=== PATIENT | female | born 1935 | race Hispanic/Latino ===

== ENCOUNTER 2018-09-12 02:20 | Observation (INO) | payer MEDICARE ==
[2018-09-12] MEDS ORDERED: NACL 0.9% 1000 ML IV ONE (02:50)
[2018-09-12 03:08] LABS: Mean Corpuscular HGB Conc 28 % (30-34); Mean Corpuscular Volume 90 fl (79-97); Platelet Count 356 K/mm3 (140-440); Red Blood Count 3.21 M/mm3 (3.65-5.03)
[2018-09-12 03:14] LABS: Hematocrit 28.7 % (30.3-42.9); Hemoglobin 7.9 gm/dl (10.1-14.3)
--- NOTE | 2018-09-12 03:20 | XRay Report ---
PROCEDURE: XR CHEST 1V AP TECHNIQUE: Chest radiograph single view. HISTORY: SOB COMPARISONS: None . FINDINGS: Heart: Mild to moderately enlarged.. Mediastinum/Vessels: The lungs appear congested.. Lungs/Pleural space: There is bilateral interstitial edema with bilateral effusions.. Bony thorax: No acute osseous abnormality. Life support devices: None. IMPRESSION: Cardiomegaly with congestive heart failure pattern and bilateral effusions.. This document is electronically signed by Alex Mcclelland MD., Sep 12 2018 03:18:17 AM ET
[2018-09-12 03:22] LABS: Alanine Aminotransferase 20 units/L (7-56); Albumin 2.5 g/dL (3.9-5)
[2018-09-12 03:23] LABS: Bilirubin,Urine NEG (Negative); Blood,Urine MOD (Negative); Color,Urine Yellow (Yellow)
[2018-09-12 03:25] LABS: WBC,Urine > 182.0 /HPF (0.0-6.0)
[2018-09-12] MEDS ORDERED: ZOSYN/NS 4.5GM/100ML 4.5 GM/100 ML VIAL IV ONE (03:30)
[2018-09-12 04:07] LABS: BUN/Creatinine Ratio 67; Blood Urea Nitrogen 47 mg/dL (7-17); Calcium 8.4 mg/dL (8.4-10.2); Hemolysis Index 26
[2018-09-12] MEDS ORDERED: LASIX IV ONE (04:13)
[2018-09-12] MEDS ORDERED: TYLENOL PO PRN (04:42)
[2018-09-12] MEDS ORDERED: MORPHINE IV PRN (04:42)
[2018-09-12] MEDS ORDERED: SODIUM CHLORIDE FLUSH SYRINGE 10 ML IV PRN (04:42)
[2018-09-12] MEDS ORDERED: ZOFRAN IV PRN (04:42)
[2018-09-12] MEDS ORDERED: KIONEX PR ONE (04:56)
--- NOTE | 2018-09-12 05:05 | Emergency Department Report ---
HPI - General Chief Complaint: Altered Mental Status Time Seen by Provider: 09/12/18 02:49 - HPI HPI: 82-year-old female presents to the emergency department via EMS from [facility] with a complaint of shortness of breath, bradycardia and some questionable altered mental status. She presents with a large packet of labs, reports and information from the patient's recent admission to [facility]. It sounds like the patient was discharged yesterday and had only been at [facility] for about 8-10 hours. The patient has a past medical history of atrial fibrillation, congestive heart failure, anemia, hypertension, macular degeneration. The patient is mostly nonverbal and is a poor historian. I was later able to speak with the patient's and grandson who say that the patient was being discharged to [facility] with the intention of placing her on hospice, but they have not yet been able to get all of the papers signed and hos pice initiated. ED Past Medical Hx - Past Medical History Previous Medical History?: Yes Hx Hypertension: Yes Hx Congestive Heart Failure: Yes (acute decompensated heart failure) Hx Arthritis: Yes Additional medical history: A-fib, anemia, hypocalcemia, mascular degeneration, peripheral edema, left pleural effusion, + depression screening, venous stasis dermatitis both lower extremities. - Surgical History Past Surgical History?: Yes Additional Surgical History: closed fracture of bone,knee joint, lumbar vertebra - Social History Smoking Status: Unknown if ever smoked - Medications Home Medications: Home Medications Medication Instructions Recorded Confirmed Last Taken Type Apixaban [Eliquis] 2.5 mg PO BID 09/12/18 09/12/18 Unknown History AtorvaSTATin [Lipitor] 40 mg PO QHS 09/12/18 09/12/18 Unknown History Ferrous Sulfate [Iron 325 MG] 325 mg PO QDAY 09/12/18 09/12/18 Unknown History Nystatin [Nystop Powder] 1 applicatio TP BID 09/12/18 09/12/18 Unknown History Polyethylene Glycol 3350 [Miralax 17 gm PO QDAY 09/12/18 09/12/18 Unknown History 3350] acetaZOLAMIDE ER [Diamox Sequels] 500 mg PO Q12H 09/12/18 09/12/18 Unknown History ED Review of Systems ROS: Stated complaint: AMS Other details as noted in HPI Comment: Unobtainable due to pts medical conditions Physical Exam - Physical Exam Vital Signs: Vital Signs 09/12/18 09/12/18 02:34 02:50 Temperature 97.9 F Pulse Rate 93 H Respiratory 15 35 H Rate Blood Pressure 122/62 Blood Pressure 122/62 [Left] O2 Sat by Pulse 98 97 Oximetry Physical Exam: GENERAL: Patient is ill-appearing. HENT: Normocephalic. Atraumatic. Patient has moist mucous membranes. EYES: Extraocular motions are intact. Pupils equal reactive to light bilaterally. NECK: Supple. Trachea is midline. CHEST/LUNGS: Coarse breath sounds at the chest. There is tachypnea and accessory muscle use. There is respiratory distress noted. HEART/CARDIOVASCULAR: Irregular rhythm. There is mild tachycardia. There is no murmur. ABDOMEN: Abdomen is soft, nontender. Patient has normal bowel sounds. There is no abdominal distention. SKIN: Skin is warm and dry. There are a few scattered decubitus ulcers. NEURO: The patient is awake but nonverbal. She does appear to be tracking with her eyes. Withdraw slightly from painful stimuli. MUSCULOSKELETAL: There is no obvious deformity. There is no evidence of acute injury. ED Course Vital Signs 09/12/18 09/12/18 02:34 02:50 Temperature 97.9 F Pulse Rate 93 H Respiratory 15 35 H Rate Blood Pressure 122/62 Blood Pressure 122/62 [Left] O2 Sat by Pulse 98 97 Oximetry - Consultations Consultation #1: 09/12/18 06:00 I contacted [facility] and spoke with the nurse salesperson women's hats. They say that they have not yet been able to get any signed forms from the family to initiate the hospitalist. Once they have all of the paperwork completed, they will be able to initiate the hospice upon discharge. - ABG Interpretation Ph: [phone] PCO2: 80 PO2: 58 Bicarbonate: 30 Interpretation: respiratory acidosis, other (hypoxemia) ED Medical Decision Making - Lab Data Result diagrams: 09/12/18 02:55 09/12/18 02:55 - EKG Data -: EKG Interpreted by Me - EKG Data When compared to previous EKG there are: previous EKG unavailable Interpretation: other (atrial fibrillation, rate of 95) - Radiology Data Radiology results: image reviewed interpreted by me: chest x-ray shows cardiomegaly, pulmonary vascular congestion and bilateral effusions. - Medical Decision Making This patient presents from [facility] with some respiratory distress. She has tachypnea, course breath sound, accessory muscle use and has some hypoxia without supplemental oxygen. However, in reviewing all of the records that came with the patient from her recent stay at [facility], I noticed that the patient and patient's family are attempting to get her set up for hospice and she was a DO NOT RESUSCITATE at [facility]. I spoke with the patient's h usband and grandson on the phone, and then once they arrived into the emergency department. They do plan to place her into hospice. I had a lengthy discussion with them regarding her CODE STATUS and the patient's decided to once again make her a DO NOT RESUSCITATE. The chest x-ray appears to show cardiomegaly, vascular congestion and pleural effusions. She has a BNP of greater than 30,000 without any renal insufficiency and altogether this appears consistent with CHF. Her ABG shows respiratory acidosis and hypoxemia. The patient was on BiPAP for a lengthy amount of time at [facility]. She is tracking with her eyes, and allegedly said some words to her and grandson. For this reason, we will attempt BiPAP to try and blow off some of the hypercapnia. She is also been given some Lasix to try and start diuresis. She was placed on IV antibiotics as part of the code sepsis workup and she does have a urinary tract infection. The patient was accepted for admission by the hospitalist service who will contact case management to try and get the order started for hospice. - Differential Diagnosis Pneumonia, CHF, PE, IL, Asthma Critical Care Time: Yes Critical care time in (mins) excluding proc time.: 35 Critical care attestation.: If time is entered above; I have spent that time in minutes in the direct care of this critically ill patient, excluding procedure time. Critical care time was spent on this patient and doing her initial evaluation, multiple re- evaluations, ordering an interpretation of labs and imaging, discussion with the patient's family and the hospitalist service. Critical Care Time: 35 minutes ED Disposition Clinical Impression: Respiratory distress, Respiratory acidosis CHF (congestive heart failure) Qualifiers: Heart failure type: unspecified Heart failure chronicity: unspecified Qualified Code(s): I50.9 - Heart failure, unspecified Sepsis Qualifiers: Sepsis type: sepsis due to unspecified organism Qualified Code(s): A41.9 - Sepsis, unspecified organism UTI (urinary tract infection) Qualifiers: Urinary tract infection type: acute cystitis Hematuria presence: with hematuria Qualified Code(s): N30.01 - Acute cystitis with hematuria Disposition: 09 OP ADMIT IP TO THIS HOSP Is pt being admited?: Yes Condition: Serious Time of Disposition: 06:06
--- NOTE | 2018-09-12 05:10 | History and Physical Report ---
<TOYA RICHARDSON - Last Filed: 09/12/18 05:36> History of Present Illness Date of examination: 09/12/18 Date of admission: 09/12/2018 Chief complaint: Respiratory failure History of present illness: Ms. Ferris is a 82-year-old female with history of CHF, A. fib rate controlled on Eliquis, chronic anemia, hypocalcemia, peripheral edema, left pleural effusion, BLE venous stasis dermatitis, macular degeneration who presents to [facility] via EMS with complaints of respiratory failure and altered mental status,. Patient is unable to assist in history. HPI is taken from medical records. Patient was recently discharged from [place] to [facility] with plans to transition to hospice. Shortly after arriving at [place] patient's mentation started to decline and her oxygen requirements increased. She had a weak response to sternal rub and was placed on Venturi mask at 15 L. Patient's has signed DO NOT RESUSCITATE paperwork and is requesting hospice at this time. Past History Past Medical History: atrial fib (anticoagulated on Eliquis), anemia, hypertension, other (hypo-calcemic, macular degeneration, ble venous stasis dermatitis, pleural effusion) Past Surgical History: Other (closed fracture of bone,knee joint, lumbar vertebra) Social history: Family history: no significant family history Medications and Allergies Allergies Allergy/AdvReac Type Severity Reaction Status Date / Time No Known Allergies Allergy Unverified 09/12/18 02:50 Home Medications Medication Instructions Recorded Confirmed Last Taken Type Apixaban [Eliquis] 2.5 mg PO BID 09/12/18 09/12/18 Unknown History AtorvaSTATin [Lipitor] 40 mg PO QHS 09/12/18 09/12/18 Unknown History Ferrous Sulfate [Iron 325 MG] 325 mg PO QDAY 09/12/18 09/12/18 Unknown History Nystatin [Nystop Powder] 1 applicatio TP BID 09/12/18 09/12/18 Unknown History Polyethylene Glycol 3350 [Miralax 17 gm PO QDAY 09/12/18 09/12/18 Unknown History 3350] acetaZOLAMIDE ER [Diamox Sequels] 500 mg PO Q12H 09/12/18 09/12/18 Unknown H istory Active Meds: Active Medications Acetaminophen (Tylenol) 650 mg PO Q4H PRN PRN Reason: Pain MILD(1-3)/Fever >100.5/SWANN Apixaban (Eliquis) 2.5 mg PO BID MARZENA; Protocol Atorvastatin Calcium (Lipitor) 40 mg PO QHS MARZENA Furosemide (Lasix) 40 mg IV 0600,1800 [facility] Miscellaneous Medication (Acetazolamide Er) 500 mg PO Q12H MARZENA Morphine Sulfate (Morphine) 2 mg IV Q4H PRN PRN Reason: Pain, Moderate (4-6) Ondansetron HCl (Zofran) 4 mg IV Q8H PRN PRN Reason: Nausea And Vomiting Sodium Chloride (Sodium Chloride Flush Syringe 10 Ml) 10 ml IV BID MARZENA Sodium Chloride (Sodium Chloride Flush Syringe 10 Ml) 10 ml IV PRN PRN PRN Reason: LINE FLUSH Sodium Polystyrene Sulfonate (Kionex) 30 gm AL ONCE ONE Stop: 09/12/18 04:57 Review of Systems ROS unobtainable: due to mental status Exam - Physical Exam Narrative exam: Physical exam General appearance: Present: Acute distress, ill appearing, lethargic - EENT Eyes: Present: PERRL, EOM intact ENT: hearing intact, poor dentition - Neck Neck: Present: supple, normal ROM - Respiratory Respiratory effort: Labored Respiratory: Scattered crackles to bases, on BiPAP - Cardiovascular Heart rate: 95 (bpm) Rhythm: Atrial fibrillation, Irregular regular Heart Sounds: Present: S1 & S2. Absent: rub, click - Extremities Extremities: no ischemia, pulses intact, abnormal (generalized 3+ pitting edema) - Peripheral Assessment Peripheral Pulses: Symmetrical - Abdominal General gastrointestinal: soft, non-tender, normal bowel sounds - Integumentary Integumentary: Present: Skin tears to right lower extremity, unstageable sacral ulcer, left inguinal ulcer, warm, dry - Musculoskeletal Musculoskeletal: generalized weakness - Psychiatric Psychiatric: obeys commands - Constitutional Vitals: Temp Pulse Resp BP Pulse Ox 97.9 F 93 H 35 H 122/62 97 09/12/18 02:34 09/12/18 02:34 09/12/18 02:50 09/12/18 02:34 09/12/18 02:50 Results - Labs CBC & Chem 7: 09/12/18 02:55 09/12/18 02:55 Labs: Laboratory Last Values WBC 16.8 K/mm3 (4.5-11.0) H 09/12/18 02:55 RBC 3.21 M/mm3 (3.65-5.03) L 09/12/18 02:55 Hgb 7.9 gm/dl (10.1-14.3) L 09/12/18 02:55 Hct 28.7 % (30.3-42.9) L 09/12/18 02:55 MCV 90 fl (79-97) 09/12/18 02:55 MCH 25 pg (28-32) L 09/12/18 02:55 MCHC 28 % (30-34) L 09/12/18 02:55 RDW 20.0 % (13.2-15.2) H 09/12/18 02:55 Plt Count 356 K/mm3 (140-440) 09/12/18 02:55 Seg Neutrophils % Signals Intelligence Analyst 09/12/18 02:55 WBC Morphology TNR 09/12/18 02:55 POC ABG pH 7.169 (7.35-7.45) L 09/12/18 03:56 POC ABG pO2 58 (80-105) L 09/12/18 03:56 POC ABG HCO3 30.6 (22-26 mml/L) 09/12/18 03:56 POC ABG Total CO2 33 (23-27mmol/L) 09/12/18 03:56 POC ABG O2 Sat 80 09/12/18 03:56 POC ABG Base Excess 2 ((-2) - (+3)mmol/L) 09/12/18 03:56 50 % 09/12/18 03:56 Sodium 142 mmol/L (137-145) 09/12/18 02:55 Potassium 5.3 mmol/L (3.6-5.0) H 09/12/18 02:55 Chloride 101.4 mmol/L (98-107) 09/12/18 02:55 Carbon Dioxide 31 mmol/L (22-30) H 09/12/18 02:55 15 mmol/L 09/12/18 02:55 BUN 47 mg/dL (7-17) H 09/12/18 02:55 0.7 mg/dL (0.7-1.2) 09/12/18 02:55 Estimated GFR > 60 ml/min 09/12/18 02:55 67 % 09/12/18 02:55 Glucose 86 mg/dL (65-100) 09/12/18 02:55 Lactic Acid 0.80 mmol/L (0.7-2.0) 09/12/18 02:55 Calcium 8.4 mg/dL (8.4-10.2) 09/12/18 02:55 0.80 mg/dL (0.1-1.2) 09/12/18 02:55 AST 21 units/L (5-40) 09/12/18 02:55 ALT 20 units/L (7-56) 09/12/18 02:55 117 units/L (35-129) 09/12/18 02:55 65.0 umol/L (25-60) H 09/12/18 03:08 < 0.010 ng/mL (0.00-0.029) 09/12/18 02:55 NT-Pro-B Natriuret Pep 35101 pg/mL (0-900) H 09/12/18 02:30 5.5 g/dL (6.3-8.2) L 09/12/18 02:55 2.5 g/dL (3.9-5) L 09/12/18 02:55 0.8 % 09/12/18 02:55 TSH 1.010 mlU/mL (0.270-4.200) 09/12/18 02:55 Yellow (Yellow) 09/12/18 02:55 Turbid (Clear) 09/12/18 02:55 5.0 (5.0-7.0) 09/12/18 02:55 Ur Specific [place] 1.014 (1.003-1.030) 09/12/18 02:55 30 mg/dl mg/dL (Negative) 09/12/18 02:55 Neg mg/dL (Negative) 09/12/18 02:55 Neg mg/dL (Negative) 09/12/18 02:55 Mod (Negative) 09/12/18 02:55 Neg (Negative) 09/12/18 02:55 Neg (Negative) 09/12/18 02:55 Not Reportable 09/12/18 02:55 4.0 mg/dL (<2.0) 09/12/18 02:55 Ur Leukocyte Esterase Mod (Negative) 09/12/18 02:55 > 182.0 /HPF (0.0-6.0) H 09/12/18 02:55 78.0 /HPF (0.0-6.0) 09/12/18 02:55 U Epithel Cells (Auto) 6.0 /HPF (0-13.0) 09/12/18 02:55 3+ /HPF 09/12/18 02:55 - Imaging and Cardiology EKG: image reviewed (atrial fibrillation 95 bpm) Chest x-ray: report reviewed (bilateral interstitial edema with bilateral effusions), image reviewed Assessment and Plan Assessment and plan: Ms. Ferris is a 82-year-old female with history of CHF, A. fib rate controlled on Eliquis, chronic anemia, hypocalcemia, peripheral edema, left pleural effusion, BLE venous stasis dermatitis, macular degeneration who presents to [facility] via EMS with complaints of respiratory failure and altered mental status. Patient arrived on Ventimask 15 L/m. Initial ABG 7.169/84.2/58/30.6 she was then placed on BiPAP. Leukocytosis with WBC 16.8. She is hyperkalemic with potassium of 5.3. The BUN elevated at 47. Family has signed DO NOT RESUSCITATE paperwork. Patient will be admitted as OBS to the telemetry unit and pending inpatient hospice placement. Consult has been placed with case management and hospice order has been placed. Acute hypoxic/ hypercapnic respiratory failure Acute exacerbation CHF Anasarca Hyperkalemia Hypertension Chronic anemia Plan: Continue supportive care care Continue non-invasive ventilation support IV Lasix Hospice consult pending Case management consult pending Cultures pending Since patient was discharged one day ago from [place] and is afebrile, emmett Hold off on IV antibiotics for now Continue Eliquis Monitor electrolytes Kayexalate 30mg Monitor H/H; transfuse when necessary DVT PPX on Eliquis and SCD's Advance Directives: No VTE prophylaxis?: Mechanical Plan of care discussed with patient/family: Yes <DANNIE GOODWIN - Last Filed: 09/13/18 07:10> History of Present Illness Date of admission: 09/12/18 05:51 Exam - Constitutional Vitals: Temp Pulse Resp BP Pulse Ox 97.5 F L 76 22 86/38 93 09/12/18 19:56 09/12/18 19:56 09/12/18 19:56 09/12/18 19:56 09/12/18 19:56 Results - Labs CBC & Chem 7: 09/12/18 02:55 09/12/18 02:55 Labs: Laboratory Last Values WBC 16.8 K/mm3 (4.5-11.0) H 09/12/18 02:55 RBC 3.21 M/mm3 (3.65-5.03) L 09/12/18 02:55 Hgb 7.9 gm/dl (10.1-14.3) L 09/12/18 02:55 Hct 28.7 % (30.3-42.9) L 09/12/18 02:55 MCV 90 fl (79-97) 09/12/18 02:55 MCH 25 pg (28-32) L 09/12/18 02:55 MCHC 28 % (30-34) L 09/12/18 02:55 RDW 20.0 % (13.2-15.2) H 09/12/18 02:55 Plt Count 356 K/mm3 (140-440) 09/12/18 02:55 Add Manual Diff Complete 09/12/18 02:55 Total Counted 100 09/12/18 02:55 Seg Neutrophils % Signals Intelligence Analyst 09/12/18 02:55 Seg Neuts % (Manual) 78.0 % (40.0-70.0) H 09/12/18 02:55 22.0 % 09/12/18 02:55 0 % (13.4-35.0) L 09/12/18 02:55 Reactive Lymphs % (Man) 0 % 09/12/18 02:55 0 % (0.0-7.3) 09/12/18 02:55 0 % (0.0-4.3) 09/12/18 02:55 0 % (0.0-1.8) 09/12/18 02:55 0 % 09/12/18 02:55 0 % 09/12/18 02:55 0 % 09/12/18 02:55 0 % 09/12/18 02:55 Nucleated RBC % Not Reportable 09/12/18 02:55 Seg Neutrophils # Man 13.1 K/mm3 (1.8-7.7) H 09/12/18 02:55 Band Neutrophils # 3.7 K/mm3 09/12/18 02:55 0.0 K/mm3 (1.2-5.4) L 09/12/18 02:55 Abs React Lymphs (Man) 0.0 K/mm3 09/12/18 02:55 0.0 K/mm3 (0.0-0.8) 09/12/18 02:55 0.0 K/mm3 (0.0-0.4) 09/12/18 02:55 0.0 K/mm3 (0.0-0.1) 09/12/18 02:55 0.0 K/mm3 09/12/18 02:55 0.0 K/mm3 09/12/18 02:55 0.0 K/mm3 09/12/18 02:55 Blast Cells # 0.0 K/mm3 09/12/18 02:55 WBC Morphology Not Reportable 09/12/18 02:55 WBC Morphology TNR 09/12/18 02:55 Hypersegmented Neuts Not Reportable 09/12/18 02:55 Hyposegmented Neuts Not Reportable 09/12/18 02:55 Hypogranular Neuts Not Reportable 09/12/18 02:55 Not Reportable 09/12/18 02:55 Not Reportable 09/12/18 02:55 Not Reportable 09/12/18 02:55 Not Reportable 09/12/18 02:55 Not Reportable 09/12/18 02:55 Not Reportable 09/12/18 02:55 Consistent w auto 09/12/18 02:55 Not Reportable 09/12/18 02:55 Plt Clumps, EDTA Not Reportable 09/12/18 02:55 Not Reportable 09/12/18 02:55 Not Reportable 09/12/18 02:55 Not Reportable 09/12/18 02:55 Plt Morphology Comment Not Reportable 09/12/18 02:55 RBC Morphology Not Reportable 09/12/18 02:55 Dimorphic RBCs Not Reportable 09/12/18 02:55 Not Reportable 09/12/18 02:55 Not Reportable 09/12/18 02:55 1+ 09/12/18 02:55 1+ 09/12/18 02:55 Not Reportable 09/12/18 02:55 Not Reportable 09/12/18 02:55 Not Reportable 09/12/18 02:55 Not Reportable 09/12/18 02:55 Not Reportable 09/12/18 02:55 Not Reportable 09/12/18 02:55 Not Reportable 09/12/18 02:55 Not Reportable 09/12/18 02:55 Not Reportable 09/12/18 02:55 Not Reportable 09/12/18 02:55 Not Reportable 09/12/18 02:55 Not Reportable 09/12/18 02:55 Not Reportable 09/12/18 02:55 Not Reportable 09/12/18 02:55 1+ 09/12/18 02:55 Acanthocytes (Spur) Few 09/12/18 02:55 Rouleaux Not Reportable 09/12/18 02:55 Not Reportable 09/12/18 02:55 Not Reportable 09/12/18 02:55 Not Reportable 09/12/18 02:55 Not Reportable 09/12/18 02:55 Hem Pathologist Commnt No 09/12/18 02:55 PT 19.6 Sec. (12.2-14.9) H 09/12/18 09:33 INR 1.55 (0.87-1.13) H 09/12/18 09:33 APTT 33.2 Sec. (24.2-36.6) 09/12/18 09:33 POC ABG pH 7.111 (7.35-7.45) L 09/12/18 11:50 POC ABG pO2 134 (80-105) H 09/12/18 11:50 POC ABG HCO3 30.6 (22-26 mml/L) 09/12/18 11:50 POC ABG Total CO2 33 (23-27mmol/L) 09/12/18 11:50 POC ABG O2 Sat 97 09/12/18 11:50 POC ABG Base Excess 1 ((-2) - (+3)mmol/L) 09/12/18 11:50 60 % 09/12/18 11:50 Sodium 142 mmol/L (137-145) 09/12/18 02:55 Potassium 5.3 mmol/L (3.6-5.0) H 09/12/18 02:55 Chloride 101.4 mmol/L (98-107) 09/12/18 02:55 Carbon Dioxide 31 mmol/L (22-30) H 09/12/18 02:55 15 mmol/L 09/12/18 02:55 BUN 47 mg/dL (7-17) H 09/12/18 02:55 0.7 mg/dL (0.7-1.2) 09/12/18 02:55 Estimated GFR > 60 ml/min 09/12/18 02:55 67 % 09/12/18 02:55 Glucose 86 mg/dL (65-100) 09/12/18 02:55 POC Glucose 97 (70-105) 09/12/18 08:56 Lactic Acid 1.00 mmol/L (0.7-2.0) 09/12/18 08:58 Calcium 8.4 mg/dL (8.4-10.2) 09/12/18 02:55 0.80 mg/dL (0.1-1.2) 09/12/18 02:55 AST 21 units/L (5-40) 09/12/18 02:55 ALT 20 units/L (7-56) 09/12/18 02:55 117 units/L (35-129) 09/12/18 02:55 65.0 umol/L (25-60) H 09/12/18 03:08 < 0.010 ng/mL (0.00-0.029) 09/12/18 02:55 NT-Pro-B Natriuret Pep 20391 pg/mL (0-900) H 09/12/18 02:30 5.5 g/dL (6.3-8.2) L 09/12/18 02:55 2.5 g/dL (3.9-5) L 09/12/18 02:55 0.8 % 09/12/18 02:55 TSH 1.010 mlU/mL (0.270-4.200) 09/12/18 02:55 Yellow (Yellow) 09/12/18 02:55 Turbid (Clear) 09/12/18 02:55 5.0 (5.0-7.0) 09/12/18 02:55 Ur Specific [place] 1.014 (1.003-1.030) 09/12/18 02:55 30 mg/dl mg/dL (Negative) 09/12/18 02:55 Neg mg/dL (Negative) 09/12/18 02:55 Neg mg/dL (Negative) 09/12/18 02:55 Mod (Negative) 09/12/18 02:55 Neg (Negative) 09/12/18 02:55 Neg (Negative) 09/12/18 02:55 Not Reportable 09/12/18 02:55 4.0 mg/dL (<2.0) 09/12/18 02:55 Ur Leukocyte Esterase Mod (Negative) 09/12/18 02:55 > 182.0 /HPF (0.0-6.0) H 09/12/18 02:55 78.0 /HPF (0.0-6.0) 09/12/18 02:55 U Epithel Cells (Auto) 6.0 /HPF (0-13.0) 09/12/18 02:55 3+ /HPF 09/12/18 02:55 Assessment and Plan Assessment and plan: I personally discussed the patient with the SPINNING SUPERVISOR-C. I agree with the above assessment and plan
[2018-09-12 05:38] LABS: Band Neutrophils # (Manual) 3.7 K/mm3; Basophils % (Manual) 0 % (0.0-1.8); Eosinophils % (Manual) 0 % (0.0-4.3); Monocytes % (Manual) 0 % (0.0-7.3); Total Cells Counted 100
[2018-09-12 05:39] LABS: Anisocytosis 1+; Poikilocytosis 1+
[2018-09-12 05:40] LABS: Platelet Estimate Consistent w Auto
[2018-09-12] MEDS: LASIX IV SCH ×2 (06:20→19:00)
[2018-09-12] MEDS: DIAMOX PO SCH ×2 (06:20→18:51)
[2018-09-12] MEDS: ELIQUIS PO SCH ×2 (09:13→21:20)
[2018-09-12] MEDS: SODIUM CHLORIDE FLUSH SYRINGE 10 ML IV SCH ×2 (09:13→22:04)
[2018-09-12 11:06] LABS: INR 1.55 (0.87-1.13); Partial Thromboplastin Time 33.2 Sec. (24.2-36.6)
--- NOTE | 2018-09-12 12:22 | Progress Note ---
Assessment and Plan Assessment and plan: Patient is a 82-year-old woman with a history of CHF, COPD, quit tobacco 12 years ago, A. fib rate controlled on Eliquis, chronic anemia, hypocalcemia, peripheral edema, left pleural effusion, BLE venous stasis dermatitis, macular degeneration who presents to [facility] via EMS with complaints of respiratory failure and altered mental status,. Patient is unable to assist in history. HPI is taken from medical records. Patient was recently discharged from [place] to [facility] with plans to transition to hospice. Shortly after arriving at [place] patient's mentation started to decline and her oxygen requirements increased. She had a weak response to sternal rub. Patient arrived on Ventimask 15 L/m. Initial ABG 7.169/84.2/58/30.6 she was then placed on BiPAP. Leukocytosis with WBC 16.8. She is hyperkalemic with potassium of 5.3. The BUN elevated at 47. Consult has been placed with case management and hospice order has been placed. Patient's has signed DO NOT RESUSCITATE paperwork and is requesting hospice at this time. Acute hypoxic/ hypercapnic respiratory failure Acute exacerbation CHF Anasarca Hyperkalemia Hypertension AOCD [phone], I spoke with . Update given, he is ok with Hospice Disposition: inpatient hospice poor prognosis, bipap didnt work will remove, anticipate CCt 35 minutes History Interval history: Patient was seen and examined. Follow-up on current diagnosis of respiratory f ailure. Patient is unresponsive on BIPAP, semi comatose. I called a CODE MET. Patient is AND/DNR, so bipap continued for comfort measures and to try and get pCO2 down. Hospitalist Physical - Physical exam Narrative exam: Gen: critically ill, near , thin frail, chronically disable appearing. HEENT: pupils reactive, op dry Neck: supple, no JVD CVS/Heart: RRR, normal S1S2, pulses present bilaterally Chest/Lungs: tachypneic, severely diminished bilaterally, Symmetrical chest expansion, reduced air entry bilaterally GI/Abdomen: soft, + bowel sounds, no guarding or rebound Extermity/Skin: no c/c/e, no obvious rash MSK: no moving Neuro: nonresponsive Psych: semi-comatose - Constitutional Vitals: Temp Pulse Resp BP Pulse Ox 97.9 F 90 34 H 107/96 93 09/12/18 02:34 09/12/18 09:02 09/12/18 06:21 09/12/18 06:21 09/12/18 06:21 Results - Labs CBC & Chem 7: 09/12/18 02:55 09/12/18 02:55 Labs: Laboratory Last Values WBC 16.8 K/mm3 (4.5-11.0) H 09/12/18 02:55 RBC 3.21 M/mm3 (3.65-5.03) L 09/12/18 02:55 Hgb 7.9 gm/dl (10.1-14.3) L 09/12/18 02:55 Hct 28.7 % (30.3-42.9) L 09/12/18 02:55 MCV 90 fl (79-97) 09/12/18 02:55 MCH 25 pg (28-32) L 09/12/18 02:55 MCHC 28 % (30-34) L 09/12/18 02:55 RDW 20.0 % (13.2-15.2) H 09/12/18 02:55 Plt Count 356 K/mm3 (140-440) 09/12/18 02:55 Add Manual Diff Complete 09/12/18 02:55 Total Counted 100 09/12/18 02:55 Seg Neutrophils % Nursing Student 09/12/18 02:55 Seg Neuts % (Manual) 78.0 % (40.0-70.0) H 09/12/18 02:55 22.0 % 09/12/18 02:55 0 % (13.4-35.0) L 09/12/18 02:55 Reactive Lymphs % (Man) 0 % 09/12/18 02:55 0 % (0.0-7.3) 09/12/18 02:55 0 % (0.0-4.3) 09/12/18 02:55 0 % (0.0-1.8) 09/12/18 02:55 0 % 09/12/18 02:55 0 % 09/12/18 02:55 0 % 09/12/18 02:55 0 % 09/12/18 02:55 Nucleated RBC % Not Reportable 09/12/18 02:55 Seg Neutrophils # Man 13.1 K/mm3 (1.8-7.7) H 09/12/18 02:55 Band Neutrophils # 3.7 K/mm3 09/12/18 02:55 0.0 K/mm3 (1.2-5.4) L 09/12/18 02:55 Abs React Lymphs (Man) 0.0 K/mm3 09/12/18 02:55 0.0 K/mm3 (0.0-0.8) 09/12/18 02:55 0.0 K/mm3 (0.0-0.4) 09/12/18 02:55 0.0 K/mm3 (0.0-0.1) 09/12/18 02:55 0.0 K/mm3 09/12/18 02:55 0.0 K/mm3 09/12/18 02:55 0.0 K/mm3 09/12/18 02:55 Blast Cells # 0.0 K/mm3 09/12/18 02:55 WBC Morphology Not Reportable 09/12/18 02:55 WBC Morphology TNR 09/12/18 02:55 Hypersegmented Neuts Not Reportable 09/12/18 02:55 Hyposegmented Neuts Not Reportable 09/12/18 02:55 Hypogranular Neuts Not Reportable 09/12/18 02:55 Not Reportable 09/12/18 02:55 Not Reportable 09/12/18 02:55 Not Reportable 09/12/18 02:55 Not Reportable 09/12/18 02:55 Not Reportable 09/12/18 02:55 Not Reportable 09/12/18 02:55 Consistent w auto 09/12/18 02:55 Not Reportable 09/12/18 02:55 Plt Clumps, EDTA Not Reportable 09/12/18 02:55 Not Reportable 09/12/18 02:55 Not Reportable 09/12/18 02:55 Not Reportable 09/12/18 02:55 Plt Morphology Comment Not Reportable 09/12/18 02:55 RBC Morphology Not Reportable 09/12/18 02:55 Dimorphic RBCs Not Reportable 09/12/18 02:55 Not Reportable 09/12/18 02:55 Not Reportable 09/12/18 02:55 1+ 09/12/18 02:55 1+ 09/12/18 02:55 Not Reportable 09/12/18 02:55 Not Reportable 09/12/18 02:55 Not Reportable 09/12/18 02:55 Not Reportable 09/12/18 02:55 Not Reportable 09/12/18 02:55 Not Reportable 09/12/18 02:55 Not Reportable 09/12/18 02:55 Not Reportable 09/12/18 02:55 Not Reportable 09/12/18 02:55 Not Reportable 09/12/18 02:55 Not Reportable 09/12/18 02:55 Not Reportable 09/12/18 02:55 Not Reportable 09/12/18 02:55 Not Reportable 09/12/18 02:55 1+ 09/12/18 02:55 Acanthocytes (Spur) Few 09/12/18 02:55 Rouleaux Not Reportable 09/12/18 02:55 Not Reportable 09/12/18 02:55 Not Reportable 09/12/18 02:55 Not Reportable 09/12/18 02:55 Not Reportable 09/12/18 02:55 Hem Pathologist Commnt No 09/12/18 02:55 PT 19.6 Sec. (12.2-14.9) H 09/12/18 09:33 INR 1.55 (0.87-1.13) H 09/12/18 09:33 APTT 33.2 Sec. (24.2-36.6) 09/12/18 09:33 POC ABG pH 7.169 (7.35-7.45) L 09/12/18 03:56 POC ABG pO2 58 (80-105) L 09/12/18 03:56 POC ABG HCO3 30.6 (22-26 mml/L) 09/12/18 03:56 POC ABG Total CO2 33 (23-27mmol/L) 09/12/18 03:56 POC ABG O2 Sat 80 09/12/18 03:56 POC ABG Base Excess 2 ((-2) - (+3)mmol/L) 09/12/18 03:56 50 % 09/12/18 03:56 Sodium 142 mmol/L (137-145) 09/12/18 02:55 Potassium 5.3 mmol/L (3.6-5.0) H 09/12/18 02:55 Chloride 101.4 mmol/L (98-107) 09/12/18 02:55 Carbon Dioxide 31 mmol/L (22-30) H 09/12/18 02:55 15 mmol/L 09/12/18 02:55 BUN 47 mg/dL (7-17) H 09/12/18 02:55 0.7 mg/dL (0.7-1.2) 09/12/18 02:55 Estimated GFR > 60 ml/min 09/12/18 02:55 67 % 09/12/18 02:55 Glucose 86 mg/dL (65-100) 09/12/18 02:55 POC Glucose 97 (70-105) 09/12/18 08:56 Lactic Acid 1.00 mmol/L (0.7-2.0) 09/12/18 08:58 Calcium 8.4 mg/dL (8.4-10.2) 09/12/18 02:55 0.80 mg/dL (0.1-1.2) 09/12/18 02:55 AST 21 units/L (5-40) 09/12/18 02:55 ALT 20 units/L (7-56) 09/12/18 02:55 117 units/L (35-129) 09/12/18 02:55 65.0 umol/L (25-60) H 09/12/18 03:08 < 0.010 ng/mL (0.00-0.029) 09/12/18 02:55 NT-Pro-B Natriuret Pep 10332 pg/mL (0-900) H 09/12/18 02:30 5.5 g/dL (6.3-8.2) L 09/12/18 02:55 2.5 g/dL (3.9-5) L 09/12/18 02:55 0.8 % 09/12/18 02:55 TSH 1.010 mlU/mL (0.270-4.200) 09/12/18 02:55 Yellow (Yellow) 09/12/18 02:55 Turbid (Clear) 09/12/18 02:55 5.0 (5.0-7.0) 09/12/18 02:55 Ur Specific Kiel 1.014 (1.003-1.030) 09/12/18 02:55 30 mg/dl mg/dL (Negative) 09/12/18 02:55 Neg mg/dL (Negative) 09/12/18 02:55 Neg mg/dL (Negative) 09/12/18 02:55 Mod (Negative) 09/12/18 02:55 Neg (Negative) 09/12/18 02:55 Neg (Negative) 09/12/18 02:55 Not Reportable 09/12/18 02:55 4.0 mg/dL (<2.0) 09/12/18 02:55 Ur Leukocyte Esterase Mod (Negative) 09/12/18 02:55 > 182.0 /HPF (0.0-6.0) H 09/12/18 02:55 78.0 /HPF (0.0-6.0) 09/12/18 02:55 U Epithel Cells (Auto) 6.0 /HPF (0-13.0) 09/12/18 02:55 3+ /HPF 09/12/18 02:55 Active Medications - Current Medications Current Medications: Generic Name Dose Route Start Last Admin Trade Name Freq PRN Reason Stop Dose Admin Acetaminophen 650 mg 09/12/18 04:42 Tylenol PO Q4H PRN Pain MILD(1-3)/Fever >100.5/SWANN Acetazolamide 500 mg 09/12/18 06:00 09/12/18 06:20 Diamox PO Not Given Q12H [facility] Apixaban 2.5 mg 09/12/18 10:00 09/12/18 09:13 Eliquis PO Not Given BID [facility] Protocol Atorvastatin Calcium 40 mg 09/12/18 22:00 Lipitor PO QHS [facility] Furosemide 40 mg 09/12/18 06:00 09/12/18 06:20 Lasix IV Not Given 0600,1800 MARZENA Morphine Sulfate 2 mg 09/12/18 04:42 Morphine IV Q4H PRN Pain, Moderate (4-6) Ondansetron HCl 4 mg 09/12/18 04:42 Zofran IV Q8H PRN Nausea And Vomiting Sodium Chloride 10 ml 09/12/18 10:00 09/12/18 09:13 Sodium Chloride Flush Syringe 10 Ml IV Not Given BID [facility] Sodium Chloride 10 ml 09/12/18 04:42 Sodium Chloride Flush Syringe 10 Ml IV PRN PRN LINE FLUSH
--- NOTE | 2018-09-12 12:33 | Discharge Summary ---
Providers - Providers Date of Admission: 09/12/18 08:58 Attending physician: RAJI SONG 09/12/18 Consult to Case Management [CONS] Routine Services Needed at Discharge: Other Notified:: case management Additional Physician Instructions: Inpatient Hospice Hospitalization Condition: Poor Hospital course: Patient is a 82-year-old woman with a history of CHF, COPD, quit tobacco 12 years ago, A. fib rate controlled on Eliquis, chronic anemia, hypocalcemia, peripheral edema, left pleural effusion, BLE venous stasis dermatitis, macular degeneration who presents to [facility] via EMS with complaints of respiratory failure and altered mental status,. Patient is unable to assist in history. HPI is taken from medical records. Patient was recently discharged from [place] to [facility] ([facility]) with plans to transition to hospice. Shortly after arriving at [place] patient's mentation started to decline and her oxygen requirements increased. She had a weak response to sternal rub. Patient arrived on Ventimask 15 L/m. Initial ABG 7.169/84.2/58/30.6 she was then placed on BiPAP. Leukocytosis with WBC 16.8. She is hyperkalemic with potassium of 5.3. The BUN elevated at 47. Consult has been placed with case management and hospice order has been placed. Patient's has signed DO NOT RESUSCITATE paperwork and is requesting hospice at this time. Discharge Diagnoses: Acute hypoxic/ hypercapnic respiratory failure Acute exacerbation CHF Acute COPD exaceration Anasarca Hyperkalemia Hypertension AOCD Disposition: [facility] ([facility]) Time spent for discharge: 31 minutes Core Measure Documentation - Palliative Care Palliative Care/ Comfort Measures: Hospice Care Exam - Physical Exam Narrative exam: Gen: critically ill, near , thin frail, chronically disable appearing. HEENT: pupils reactive, op dry Neck: supple, no JVD CVS/Heart: RRR, normal S1S2, pulses present bilaterally Chest/Lungs: tachypneic, severely diminished bilaterally, Symmetrical chest expansion, reduced air entry bilaterally GI/Abdomen: soft, + bowel sounds, no guarding or rebound Extermity/Skin: no c/c/e, no obvious rash MSK: no moving Neuro: nonresponsive Psych: semi-comatose - Constitutional Vitals: Temp Pulse Resp BP Pulse Ox 97.9 F 69 23 92/50 91 09/12/18 02:34 09/12/18 12:16 09/12/18 09:02 09/12/18 12:16 09/12/18 12:16 Plan Additional Instructions: Hospice Care Follow up with: ELDER ALMARAZ MD [facility] [Other] - 3-5 Days
[2018-09-12 19:57] VITALS: BP 86/38
--- NOTE | 2018-09-13 07:29 | Death Summary ---
Summary - Providers Consults: 09/12/18 Consult to Case Management [CONS] Routine Services Needed at Discharge: Other Notified:: case management Additional Physician Instructions: Inpatient Hospice Attending: RAJI SONG - summary Date of admission: 09/12/18 05:51 Date of : 09/12/18 Significant findings: Patient is a 82-year-old woman with a history of CHF, COPD, quit tobacco 12 years ago, A. fib rate controlled on Eliquis, chronic anemia, hypocalcemia, peripheral edema, left pleural effusion, BLE venous stasis dermatitis, macular degeneration who presented to [facility] via EMS with respiratory failure and altered mental status,. Patient is unable to assist in history. HPI is taken from medical records. Patient was recently discharged from [place] to [facility] with plans to transition to hospice. Shortly after arriving at [place], patient's mentation started to decline and her oxygen requirements increased. She had a weak response to sternal rub. Patient arrived on Ventimask 15 L/m. Initial ABG 7.169/84.2/58/30.6 she was then placed on BiPAP. Leukocytosis with WBC 16.8. She is hyperkalemic with potassium of 5.3. The BUN elevated at 47. pCXR c/w CHF. Consult has been placed with case management and hospice order has been placed. Patient's has signed DO NOT RESUSCITATE paperwork and is requesting hospice at this time. Acute hypoxic/ hypercapnic respiratory failure Acute exacerbation CHF, suspected acute on chronic combined heart failure Acute COPD exaceration Acute Encephalopathy, poa Severe Malnutrition, poa Anasarca Hyperkalemia Hypertension AOCD Time of 9:45pm per LASHAY Wheeler suspected Cause of : CHF
--- NOTE | 2018-09-13 08:44 | Event Note ---
Date: 09/12/18 Patient pronounced at 945 pm Cardiorespiratory arrest
== END 2018-09-12 22:00 ==
LOC: ED 02:20 → 4A 05:51 → INTOOBSV 08:58 → OBSVTOIN 08:58
PROVIDERS: ADMIT Internal Medicine; ATTEND Internal Medicine
DX: J96.01 Acute respiratory failure with hypoxia (principal); J96.02 Acute respiratory failure with hypercapnia; N39.0 Urinary tract infection, site not specified; I11.0 Hypertensive heart disease with heart failure; I50.9 Heart failure, unspecified; R60.1 Generalized edema; E87.5 Hyperkalemia; D64.9 Anemia, unspecified; E83.51 Hypocalcemia; J44.1 Chronic obstructive pulmonary disease with (acute) exacerbation; G93.40 Encephalopathy, unspecified; E43 Unspecified severe protein-calorie malnutrition; R41.82 Altered mental status, unspecified; I48.91 Unspecified atrial fibrillation; Z79.899 Other long term (current) drug therapy; Z87.891 Personal history of nicotine dependence
CPT/HCPCS: 36415; 36600; 71045; 80053; 81001; 82140; 82803; 82962; 83880; 84443; 84484; 85007; 85025; 85610; 85730; 87040; 87086; 93005; 93010; 96361; 96365; 96375; 96376; 99291; G0378; J1940; J2543; J7030